=== PATIENT | female | born 1955 | race Caucasian/White ===

== ENCOUNTER 2019-06-09 12:56 | Inpatient (IN) | payer MEDICAID, OTHER ==
[~2019-06-09] VITALS: Ht 167.6 cm; Wt 91.6 kg
[2019-06-09] MEDS ORDERED: MORPHINE SULFATE 4 MG/ML CPJ (NOT FOR IM USE) IV ONE (13:30)
[2019-06-09] MEDS ORDERED: LABETALOL 5MG/ML SYR 20 MG/4 ML SYRINGE IV ONE (15:45)
[2019-06-09] MEDS ORDERED: ONDANSETRON HCL 4MG/2ML INJ IV PRN (20:00)
[2019-06-09] MEDS ORDERED: HYDRALAZINE 20MG/ML VIAL IV NR (20:00)
[2019-06-09] MEDS ORDERED: ACETAMINOPHEN 325MG TABLET PO PRN (20:00)
[2019-06-09 20:21] LABS: BASOPHILS % 0.3 % (0.0-2.0); EOSINOPHILS % 1.1 % (0.0-5.0); HEMATOCRIT. 35.2 % (36.0-48.0); HEMOGLOBIN. 11.8 g/dL (12.0-16.0); LYMPHOCYTES % 27.9 % (20.0-50.0); MEAN CORPUSCULAR HEMOGLOBIN 29.3 pg (28.0-32.0); MEAN CORPUSCULAR VOLUME 87.5 fL (81.0-99.0); MEAN PLATELET VOLUME 10.8 fl (7.4-10.4); MONOCYTES % 10.2 % (2.0-8.0); NEUTROPHILS % 60.5 % (40.0-76.0); PLATELET 210 x1000/uL (130-400); RED BLOOD CELL COUNT 4.03 mill/uL (4.2-5.4); RED CELL DISTRIBUTION WIDTH 13.8 % (11.6-14.6)
[2019-06-09] MEDS ORDERED: LOSARTAN POTASSIUM 100 MG TABLET PO NR (22:00)
[2019-06-09] MEDS: AMLODIPINE 5MG TABLET PO SCH (22:15)
[2019-06-09] MEDS ORDERED: DEXTROSE 50% WATER 50ML SYRINGE IV PRN (23:45)
[2019-06-09] MEDS: MORPHINE SULFATE 2 MG/ML CPJ (NOT FOR IM USE) IV PRN (23:49)
[2019-06-10] VITALS (7 sets, daily range): BP systolic 133–210; BP diastolic 69–85
[2019-06-10] MEDS: CLONIDINE 0.1MG TABLET PO PRN (00:32)
[2019-06-10] MEDS ORDERED: INSULIN LISPRO 100 UNITS/ML SUBCUT SCH ×2 (01:00→07:50)
[2019-06-10] MEDS ORDERED: DOXA2TAB2 MT (04:46)
[2019-06-10] MEDS ORDERED: ATEN50TA MT (04:47)
[2019-06-10] MEDS ORDERED: GABA-529 MT (04:48)
[2019-06-10] MEDS ORDERED: AMLO10TA80 MT (04:48)
[2019-06-10] MEDS ORDERED: LOSA1TAB37 MT (04:49)
[2019-06-10] MEDS ORDERED: GLIP10TA10 MT (04:49)
[2019-06-10] MEDS ORDERED: ATOR40TA70 MT (04:50)
[2019-06-10] MEDS: BLOOD SUGAR DIAGNOSTIC STRIP TEST SCH ×4 (07:23→21:00)
[2019-06-10] MEDS: INSULIN LISPRO 100 UNITS/ML SUBCUT SCH ×4 (07:29→23:01)
[2019-06-10] MEDS ORDERED: POTASSIUM CHLORIDE 20MEQ TABLET SR PO NR (08:45)
[2019-06-10] MEDS: AMLODIPINE 5MG TABLET PO SCH ×2 (08:48→22:26)
[2019-06-10] MEDS: LOSARTAN POTASSIUM 100 MG TABLET PO SCH (08:48)
[2019-06-10] MEDS: MORPHINE SULFATE 2 MG/ML CPJ (NOT FOR IM USE) IV PRN (08:49)
[2019-06-10] MEDS: HYDRALAZINE HCL 50MG TABLET PO SCH ×2 (11:05→22:26)
[2019-06-10] MEDS: INSULIN GLARGINE UD 100 UNITS/ML SYR SUBCUT SCH ×2 (11:16→22:30)
[2019-06-10] MEDS: HYDROCODONE/ACETAMINOPHEN 5/325MG TABLET PO PRN ×2 (11:50→23:02)
[2019-06-10 14:03] LABS: CLARITY URINE CLEAR (CLEAR); COLOR URINE YELLOW (YELLOW); KETONES URINE NEGATIVE (NEGATIVE); LEUKOCYTE ESTERASE URINE NEGATIVE (NEGATIVE); NITRITE URINE NEGATIVE (NEGATIVE); OCCULT BLOOD URINE 2+ (NEGATIVE); PH URINE 5.5 (4.5-8.0); PROTEIN URINE 3+ (NEGATIVE); SPECIFIC GRAVITY URINE 1.016 (1.005-1.030); UROBILINOGEN URINE 0.2 E.U./dL (0.2-1.0)
[2019-06-10 14:22] LABS: *BARBITURATES SCREEN URINE NEGATIVE (NEGATIVE); *BENZODIAZEPINES SCREEN URINE NEGATIVE (NEGATIVE)
[2019-06-10 14:23] LABS: *AMPHETAMINES SCREEN URINE NEGATIVE (NEGATIVE); *COCAINE SCREEN URINE NEGATIVE (NEGATIVE); METHADONE URINE SCREEN NEGATIVE (NEGATIVE); OPIATES URINE SCREEN PRESUMTIVE POSITIVE (NEGATIVE); PHENCYCLIDINE URINE SCREEN NEGATIVE (NEGATIVE)
[2019-06-10 14:24] LABS: CANNABINOID URINE SCREEN NEGATIVE (NEGATIVE)
[2019-06-11] VITALS: BP 162/73
[2019-06-11] MEDS: CLONIDINE 0.1MG TABLET PO PRN (00:30)
[2019-06-11 04:00] VITALS: BP 137/67
[2019-06-11] MEDS: BLOOD SUGAR DIAGNOSTIC STRIP TEST SCH ×4 (06:21→21:00)
[2019-06-11 07:58] LABS: BASOPHILS % 0.6 % (0.0-2.0); EOSINOPHILS % 3.1 % (0.0-5.0); HEMATOCRIT. 29.4 % (36.0-48.0); LYMPHOCYTES % 35.5 % (20.0-50.0); MEAN CORPUSCULAR HEMOGLOBIN 29.6 pg (28.0-32.0); MEAN CORPUSCULAR VOLUME 86.8 fL (81.0-99.0); MEAN PLATELET VOLUME 11.5 fl (7.4-10.4); MONOCYTES % 11.4 % (2.0-8.0); NEUTROPHILS % 49.4 % (40.0-76.0); PLATELET 193 x1000/uL (130-400); RED BLOOD CELL COUNT 3.39 mill/uL (4.2-5.4); RED CELL DISTRIBUTION WIDTH 13.4 % (11.6-14.6)
[2019-06-11 08:00] VITALS: BP 157/72
[2019-06-11] MEDS: INSULIN LISPRO 100 UNITS/ML SUBCUT SCH ×4 (08:16→22:50)
[2019-06-11] MEDS ORDERED: POTASSIUM CHLORIDE 20MEQ/PACKET PO NR (09:00)
[2019-06-11] MEDS: LOSARTAN POTASSIUM 100 MG TABLET PO SCH (09:50)
[2019-06-11] MEDS: AMLODIPINE 5MG TABLET PO SCH ×2 (09:51→22:28)
[2019-06-11] MEDS: HYDRALAZINE HCL 50MG TABLET PO SCH ×2 (09:51→22:29)
[2019-06-11] MEDS: INSULIN GLARGINE UD 100 UNITS/ML SYR SUBCUT SCH ×2 (09:59→22:32)
[2019-06-11] MEDS: HYDROCODONE/ACETAMINOPHEN 5/325MG TABLET PO PRN (10:00)
[2019-06-11] MEDS: MORPHINE SULFATE 2 MG/ML CPJ (NOT FOR IM USE) IV PRN ×3 (11:40→23:36)
[2019-06-11 12:00] VITALS: BP 162/83
[2019-06-11 13:10] LABS: CANCER ANTIGEN 125 17.6 U/mL (0.0-38.1)
[2019-06-11 16:00] VITALS: BP 130/66
[2019-06-11 20:00] VITALS: BP 174/70
[2019-06-12] VITALS (8 sets, daily range): BP systolic 123–196; BP diastolic 73–100
[2019-06-12] MEDS: CLONIDINE 0.1MG TABLET PO PRN (00:42)
[2019-06-12] MEDS: MORPHINE SULFATE 2 MG/ML CPJ (NOT FOR IM USE) IV PRN ×2 (03:48→10:09)
[2019-06-12 06:40] LABS: PHOSPHORUS 3.7 mg/dL (2.5-4.9)
[2019-06-12] MEDS: BLOOD SUGAR DIAGNOSTIC STRIP TEST SCH ×4 (06:59→20:54)
[2019-06-12] MEDS: INSULIN LISPRO 100 UNITS/ML SUBCUT SCH ×4 (07:00→20:58)
[2019-06-12 09:44] LABS: BASOPHILS % 0.5 % (0.0-2.0); EOSINOPHILS % 2.7 % (0.0-5.0); HEMATOCRIT. 30.5 % (36.0-48.0); HEMOGLOBIN. 10.3 g/dL (12.0-16.0); MEAN CORPUSCULAR HEMOGLOBIN 29.6 pg (28.0-32.0); MEAN CORPUSCULAR VOLUME 87.3 fL (81.0-99.0); MONOCYTES % 13.7 % (2.0-8.0); NEUTROPHILS % 54.1 % (40.0-76.0); PLATELET 219 x1000/uL (130-400); RED BLOOD CELL COUNT 3.49 mill/uL (4.2-5.4); RED CELL DISTRIBUTION WIDTH 13.6 % (11.6-14.6)
[2019-06-12] MEDS: INSULIN GLARGINE UD 100 UNITS/ML SYR SUBCUT SCH ×2 (10:01→22:47)
[2019-06-12] MEDS: AMLODIPINE 5MG TABLET PO SCH ×2 (10:02→20:54)
[2019-06-12] MEDS: LOSARTAN POTASSIUM 100 MG TABLET PO SCH (10:03)
[2019-06-12] MEDS: HYDRALAZINE HCL 50MG TABLET PO SCH ×2 (10:03→20:54)
[2019-06-12] MEDS: SODIUM CHLORIDE 0.9% 1,000 ML IV SCH (17:18)
[2019-06-13] VITALS: BP 180/85
[2019-06-13] MEDS: CLONIDINE 0.1MG TABLET PO PRN (00:10)
[2019-06-13] MEDS: MORPHINE SULFATE 2 MG/ML CPJ (NOT FOR IM USE) IV PRN ×2 (01:44→06:04)
[2019-06-13 04:00] VITALS: BP 144/70
[2019-06-13] MEDS: SODIUM CHLORIDE 0.9% 1,000 ML IV SCH (04:57)
[2019-06-13] MEDS: BLOOD SUGAR DIAGNOSTIC STRIP TEST SCH ×4 (06:34→21:37)
[2019-06-13] MEDS: INSULIN LISPRO 100 UNITS/ML SUBCUT SCH ×4 (07:17→21:00)
[2019-06-13 07:26] LABS: BASOPHILS % 0.2 % (0.0-2.0); EOSINOPHILS % 1.9 % (0.0-5.0); HEMATOCRIT. 26.6 % (36.0-48.0); LYMPHOCYTES % 28.2 % (20.0-50.0); MEAN CORPUSCULAR HEMOGLOBIN 29.4 pg (28.0-32.0); MEAN CORPUSCULAR VOLUME 87.3 fL (81.0-99.0); MEAN PLATELET VOLUME 11.1 fl (7.4-10.4); MONOCYTES % 13.9 % (2.0-8.0); NEUTROPHILS % 55.8 % (40.0-76.0); PLATELET 220 x1000/uL (130-400); RED BLOOD CELL COUNT 3.05 mill/uL (4.2-5.4); RED CELL DISTRIBUTION WIDTH 13.5 % (11.6-14.6)
[2019-06-13 08:00] VITALS: BP 130/70
[2019-06-13 08:23] LABS: PHOSPHORUS 4.3 mg/dL (2.5-4.9)
[2019-06-13 08:28] LABS: T4 FREE 1.23 ng/dL (0.76-1.46)
[2019-06-13 09:09] LABS: IMMUNOGLOBULIN A 158 mg/dL (87-352); IMMUNOGLOBULIN G 1368 mg/dL (700-1600); IMMUNOGLOBULIN M 91 mg/dL (26-217)
[2019-06-13] MEDS: HYDRALAZINE HCL 50MG TABLET PO SCH ×2 (09:12→20:40)
[2019-06-13] MEDS: AMLODIPINE 5MG TABLET PO SCH ×2 (09:12→20:40)
[2019-06-13] MEDS: LOSARTAN POTASSIUM 100 MG TABLET PO SCH (09:12)
[2019-06-13] MEDS: HYDROCODONE/ACETAMINOPHEN 5/325MG TABLET PO PRN ×2 (09:12→20:40)
[2019-06-13] MEDS ORDERED: MORPHINE SULFATE 4 MG/ML CPJ (NOT FOR IM USE) IV PRN (10:00)
[2019-06-13] MEDS: INSULIN GLARGINE UD 100 UNITS/ML SYR SUBCUT SCH ×2 (10:10→21:43)
[2019-06-13 20:00] VITALS: BP 151/75
[2019-06-14] VITALS: BP 155/74
[2019-06-14] MEDS: HYDROCODONE/ACETAMINOPHEN 5/325MG TABLET PO PRN ×4 (01:44→20:51)
[2019-06-14 04:00] VITALS: BP 156/69
[2019-06-14] MEDS: BLOOD SUGAR DIAGNOSTIC STRIP TEST SCH ×4 (07:20→21:00)
[2019-06-14] MEDS: INSULIN LISPRO 100 UNITS/ML SUBCUT SCH ×4 (07:50→21:17)
[2019-06-14 08:00] VITALS: BP 160/83
[2019-06-14] MEDS: AMLODIPINE 5MG TABLET PO SCH ×2 (08:55→20:50)
[2019-06-14] MEDS: LOSARTAN POTASSIUM 100 MG TABLET PO SCH (08:55)
[2019-06-14] MEDS: HYDRALAZINE HCL 50MG TABLET PO SCH ×2 (08:55→20:52)
[2019-06-14] MEDS: INSULIN GLARGINE UD 100 UNITS/ML SYR SUBCUT SCH ×2 (10:26→22:19)
[2019-06-14 12:00] VITALS: BP 179/91
[2019-06-14] MEDS: ATENOLOL 25MG TABLET PO SCH (13:23)
[2019-06-14 16:00] VITALS: BP 171/86
[2019-06-14 17:30] VITALS: BP 148/71
[2019-06-15] VITALS: BP 146/69
[2019-06-15] MEDS: HYDROCODONE/ACETAMINOPHEN 5/325MG TABLET PO PRN ×4 (02:56→22:58)
[2019-06-15 04:00] VITALS: BP 103/64
[2019-06-15 06:48] LABS: BASOPHILS % 0.8 % (0.0-2.0); EOSINOPHILS % 2.3 % (0.0-5.0); HEMATOCRIT. 30.5 % (36.0-48.0); HEMOGLOBIN. 10.2 g/dL (12.0-16.0); LYMPHOCYTES % 20.5 % (20.0-50.0); MEAN CORPUSCULAR HEMOGLOBIN 29.4 pg (28.0-32.0); MEAN CORPUSCULAR VOLUME 87.7 fL (81.0-99.0); MEAN PLATELET VOLUME 11.1 fl (7.4-10.4); MONOCYTES % 11.1 % (2.0-8.0); NEUTROPHILS % 65.3 % (40.0-76.0); PLATELET 296 x1000/uL (130-400); RED BLOOD CELL COUNT 3.47 mill/uL (4.2-5.4); RED CELL DISTRIBUTION WIDTH 13.7 % (11.6-14.6)
[2019-06-15 07:30] LABS: PHOSPHORUS 4.3 mg/dL (2.5-4.9)
[2019-06-15] MEDS: INSULIN LISPRO 100 UNITS/ML SUBCUT SCH ×3 (07:49→17:50)
[2019-06-15] MEDS: BLOOD SUGAR DIAGNOSTIC STRIP TEST SCH ×4 (07:50→21:00)
[2019-06-15 08:00] VITALS: BP 147/69
[2019-06-15] MEDS: LOSARTAN POTASSIUM 100 MG TABLET PO SCH (08:57)
[2019-06-15] MEDS: AMLODIPINE 5MG TABLET PO SCH ×2 (08:58→22:42)
[2019-06-15] MEDS: HYDRALAZINE HCL 50MG TABLET PO SCH ×2 (08:58→22:42)
[2019-06-15] MEDS: ATENOLOL 25MG TABLET PO SCH (08:58)
[2019-06-15] MEDS: INSULIN GLARGINE UD 100 UNITS/ML SYR SUBCUT SCH (10:11)
[2019-06-15 12:00] VITALS: BP 156/74
[2019-06-15] MEDS: LORAZEPAM 0.5MG TABLET PO PRN (13:37)
[2019-06-15 16:00] VITALS: BP 150/79
[2019-06-15 20:00] VITALS: BP 149/68
[2019-06-16] VITALS (7 sets, daily range): BP systolic 105–153; BP diastolic 53–72
[2019-06-16] MEDS: INSULIN LISPRO 100 UNITS/ML SUBCUT SCH ×4 (01:47→17:28)
[2019-06-16] MEDS: INSULIN GLARGINE UD 100 UNITS/ML SYR SUBCUT SCH ×2 (01:49→11:00)
[2019-06-16] MEDS: LORAZEPAM 0.5MG TABLET PO PRN ×2 (02:40→11:49)
[2019-06-16 07:15] LABS: PHOSPHORUS 3.8 mg/dL (2.5-4.9)
[2019-06-16 07:16] LABS: BASOPHILS % 0.4 % (0.0-2.0); EOSINOPHILS % 0.6 % (0.0-5.0); HEMATOCRIT. 28.4 % (36.0-48.0); HEMOGLOBIN. 9.4 g/dL (12.0-16.0); LYMPHOCYTES % 14.9 % (20.0-50.0); MEAN CORPUSCULAR HEMOGLOBIN 29.1 pg (28.0-32.0); MEAN CORPUSCULAR VOLUME 88.2 fL (81.0-99.0); MEAN PLATELET VOLUME 10.8 fl (7.4-10.4); MONOCYTES % 11.9 % (2.0-8.0); NEUTROPHILS % 72.2 % (40.0-76.0); PLATELET 298 x1000/uL (130-400); RED BLOOD CELL COUNT 3.21 mill/uL (4.2-5.4); RED CELL DISTRIBUTION WIDTH 13.2 % (11.6-14.6)
[2019-06-16] MEDS: BLOOD SUGAR DIAGNOSTIC STRIP TEST SCH ×4 (07:20→21:00)
[2019-06-16] MEDS: ATENOLOL 25MG TABLET PO SCH (09:24)
[2019-06-16] MEDS: AMLODIPINE 5MG TABLET PO SCH ×2 (11:49→21:00)
[2019-06-16] MEDS: LOSARTAN POTASSIUM 100 MG TABLET PO SCH (11:49)
[2019-06-16] MEDS: HYDRALAZINE HCL 50MG TABLET PO SCH ×2 (11:49→21:00)
[2019-06-16] MEDS: HYDROCODONE/ACETAMINOPHEN 5/325MG TABLET PO PRN (17:15)
[2019-06-17] VITALS: BP 156/54
[2019-06-17 04:00] VITALS: BP 154/65
[2019-06-17] MEDS: HYDROCODONE/ACETAMINOPHEN 5/325MG TABLET PO PRN ×3 (05:22→20:57)
[2019-06-17] MEDS: INSULIN LISPRO 100 UNITS/ML SUBCUT SCH ×4 (06:32→20:49)
[2019-06-17] MEDS: INSULIN GLARGINE UD 100 UNITS/ML SYR SUBCUT SCH ×3 (06:36→21:00)
[2019-06-17 07:24] LABS: EOSINOPHILS % 0.6 % (0.0-5.0); HEMATOCRIT. 25.7 % (36.0-48.0); HEMOGLOBIN. 8.6 g/dL (12.0-16.0); LYMPHOCYTES % 18.2 % (20.0-50.0); MEAN CORPUSCULAR HEMOGLOBIN 29.5 pg (28.0-32.0); MEAN CORPUSCULAR VOLUME 87.9 fL (81.0-99.0); MEAN PLATELET VOLUME 10.7 fl (7.4-10.4); MONOCYTES % 12.3 % (2.0-8.0); NEUTROPHILS % 67.9 % (40.0-76.0); PLATELET 304 x1000/uL (130-400); RED BLOOD CELL COUNT 2.93 mill/uL (4.2-5.4); RED CELL DISTRIBUTION WIDTH 13.6 % (11.6-14.6)
[2019-06-17 08:00] VITALS: BP 135/59
[2019-06-17] MEDS: LOSARTAN POTASSIUM 100 MG TABLET PO SCH (08:15)
[2019-06-17] MEDS: HYDRALAZINE HCL 50MG TABLET PO SCH ×2 (08:16→20:50)
[2019-06-17] MEDS: ATENOLOL 25MG TABLET PO SCH (08:16)
[2019-06-17] MEDS: AMLODIPINE 5MG TABLET PO SCH ×2 (08:16→20:50)
[2019-06-17 08:44] LABS: PHOSPHORUS 3.3 mg/dL (2.5-4.9)
[2019-06-17 12:00] VITALS: BP 157/69
[2019-06-17 16:00] VITALS: BP 137/65
[2019-06-17 20:00] VITALS: BP 142/61
[2019-06-17] MEDS: BLOOD SUGAR DIAGNOSTIC STRIP TEST SCH (20:49)
[2019-06-18] VITALS: BP 142/78
[2019-06-18 04:00] VITALS: BP 166/75
[2019-06-18] MEDS: BLOOD SUGAR DIAGNOSTIC STRIP TEST SCH ×3 (06:09→17:20)
[2019-06-18] MEDS: INSULIN LISPRO 100 UNITS/ML SUBCUT SCH ×3 (06:10→17:50)
[2019-06-18] MEDS: HYDROCODONE/ACETAMINOPHEN 5/325MG TABLET PO PRN (07:02)
[2019-06-18 07:42] LABS: BASOPHILS % 0.8 % (0.0-2.0); EOSINOPHILS % 3.5 % (0.0-5.0); HEMATOCRIT. 30.7 % (36.0-48.0); HEMOGLOBIN. 10.1 g/dL (12.0-16.0); LYMPHOCYTES % 24.8 % (20.0-50.0); MEAN CORPUSCULAR HEMOGLOBIN 29.1 pg (28.0-32.0); MEAN CORPUSCULAR VOLUME 88.4 fL (81.0-99.0); MEAN PLATELET VOLUME 10.9 fl (7.4-10.4); MONOCYTES % 12.6 % (2.0-8.0); NEUTROPHILS % 58.3 % (40.0-76.0); PLATELET 352 x1000/uL (130-400); RED BLOOD CELL COUNT 3.47 mill/uL (4.2-5.4); RED CELL DISTRIBUTION WIDTH 13.5 % (11.6-14.6)
[2019-06-18 08:28] LABS: PHOSPHORUS 3.6 mg/dL (2.5-4.9)
[2019-06-18] MEDS: HYDRALAZINE HCL 50MG TABLET PO SCH (09:08)
[2019-06-18] MEDS: LOSARTAN POTASSIUM 100 MG TABLET PO SCH (09:08)
[2019-06-18] MEDS: ATENOLOL 25MG TABLET PO SCH (09:09)
[2019-06-18] MEDS: AMLODIPINE 5MG TABLET PO SCH (09:09)
[2019-06-18] MEDS: INSULIN GLARGINE UD 100 UNITS/ML SYR SUBCUT SCH (11:27)
[2019-06-18] MEDS ORDERED: HYDR-4001 PO (12:31)
[2019-06-18 18:17] VITALS: BP 138/61
== END 2019-06-18 19:02 | disposition home health service (06) | DRG 342 ==
LOC: ER 12:56 → 6EST 21:00 → ENRESERV 21:08
PROVIDERS: ADMIT Internal Medicine; ATTEND Internal Medicine
DX: M84.461A Pathological fracture, right tibia, initial encounter for fracture (principal); N17.0 Acute kidney failure with tubular necrosis; E44.0 Moderate protein-calorie malnutrition; E11.22 Type 2 diabetes mellitus with diabetic chronic kidney disease; D64.9 Anemia, unspecified; S62.525A Nondisplaced fracture of distal phalanx of left thumb, initial encounter for closed fracture; E87.1 Hypo-osmolality and hyponatremia; M17.11 Unilateral primary osteoarthritis, right knee; D72.829 Elevated white blood cell count, unspecified; E66.9 Obesity, unspecified; E87.6 Hypokalemia; W18.39XA Other fall on same level, initial encounter; I16.0 Hypertensive urgency; I12.9 Hypertensive chronic kidney disease with stage 1 through stage 4 chronic kidney disease, or unspecified chronic kidney disease; N28.1 Cyst of kidney, acquired; N18.3 Chronic kidney disease, stage 3 (moderate); N28.89 Other specified disorders of kidney and ureter; Z82.49 Family history of ischemic heart disease and other diseases of the circulatory system; Z83.3 Family history of diabetes mellitus; Z68.32 Body mass index [BMI] 32.0-32.9, adult; Z79.84 Long term (current) use of oral hypoglycemic drugs; Z79.899 Other long term (current) drug therapy; Y93.89 Activity, other specified; Y92.89 Other specified places as the place of occurrence of the external cause; Y99.8 Other external cause status
CPT/HCPCS: 36415; 71250; 73140; 73562; 73721; 74176; 76770; 78306; 80048; 80076; 80305; 81003; 82105; 82378; 82570; 82784; 82962; 83735; 84100; 84145; 84156; 84439; 84443; 84481; 85651; 86140; 86304; 86334; 93306; 93970; 99285; A9503; J0360; J1815; J2270; J3490; J7030